=== PATIENT | female | born 1980 | race Caucasian/White ===

== ENCOUNTER 2017-04-08 02:22 | Emergency (ER) | payer OTHER ==
[2017-04-08] MEDS ORDERED: ONDANSETRON 4 MG/2 ML VIAL ONE (02:24)
--- NOTE | 2017-04-08 02:29 | EDPHY ---
H & P HPI/ROS: HPI CHIEF COMPLAINT: Acute alcohol intoxication HISTORY OF PRESENT ILLNESS: This patient 36-year-old female, denies any significant medical history except for mitral valve prolapse, pleasant however history review of systems somewhat limited due to patient's clinical state of acute alcohol intoxication. According to EMS she is visiting [facility] from [facility] with her boyfriend for a convention. She did have multiple alcoholic beverages tonight. She was found on [facility] unable to ambulate vomiting. Police and EMS make contact with her she was unable to ambulate so they brought her here to the emergency room. Upon arrival here in emergency room she is vomiting, she is highly intoxicated with alcohol smells of alcohol she is slurring her speech. She denies any focal complaints. No trauma reported. Past Medical History: Mitral valve prolapse Past Surgical History: Otherwise unknown Social History: Lives in [facility] Family History: Unknown ROS REVIEW OF SYSTEMS: Pre of systems limited due to patient's clinical state of intoxication Exam Constitutional intoxicated, smells of alcohol triage nursing summary reviewed, vital signs reviewed, sleepy Eyes horizontal beating nystagmus consistent with acute alcohol intoxication, normal conjunctivae and sclera. HENT normal inspection, atraumatic, moist mucus membranes, no epistaxis, neck supple/ no meningismus, no raccoon eyes. Respiratory clear to auscultation bilaterally, normal breath sounds, no respiratory distress, no wheezing. Cardiovascular rate normal, regular rhythm, no murmur, no edema, distal pulses normal. Gastrointestinal soft, non-tender, no rebound, no guarding, normal bowel sounds, no distension, no pulsatile mass. Genitourinary no CVA tenderness. Musculoskeletal no midline vertebral tenderness, full range of motion, no calf swelling, no tenderness of extremities, no meningismus, good pulses, neurovascularly intact. Skin pink, warm, & dry, no rash, skin atraumatic. Neurologic slurring his speech, consistent with alcohol intoxication, smells of alcohol, moves all extremities, ataxic gait unable to ambulate Heme/Lymph/Immune no lymphadenopathy. Differential Diagnosis: Includes but is not limited to in a particular order acute alcohol intoxication, alcohol intoxication causing acute nausea vomiting, dehydration. Medical Decision Making: Plan for this patient placed on electrical helper watch her closely, IV fluid bolus, IV Zofran for nausea. Monitor for sobriety. Check breath alcohol. Re-evaluation: [id number]: At this time patient refused breath alcohol. 0540: Patient is now much more sober she has, cooperative. Speaking coherently. Complete sentences. No ataxia. Normal gait. She is trying to find a ride back to her hotel. She is trying to contact her boyfriend at this time. Source: Patient, Police, EMS Constitutional: Initial Vital Signs Temperature (C) 36.4 C 04/08/17 02:30 Heart Rate 104 H 04/08/17 02:30 Respiratory Rate 18 04/08/17 02:30 Blood Pressure 125/81 H 04/08/17 02:30 O2 Sat (%) 97 04/08/17 02:30 O2 Delivery Mode Room Air Allergies/Adverse Reactions: levofloxacin [From Levaquin] Allergy (Verified 04/08/17 02:43) Hives Home Medications: Medication Instructions Recorded Ortho Tri-Cyclen 28 Tablet 04/08/17 Medical Decision Making - Data Points Medications Given: Discontinued Medications Ondansetron HCl (Zofran) 4 mg IVP EDNOW ONE Stop: 04/08/17 02:31 Last Admin: 04/08/17 02:30 Dose: 4 mg Departure - Departure Disposition: Home, Routine, Self-Care Clinical Impression: Alcoholic intoxication Qualifiers: Complication of substance-induced condition: uncomplicated Qualified Code(s): F10.920 - Alcohol use, unspecified with intoxication, uncomplicated Condition: Good Instructions: Alcohol Intoxication (ED) Referrals: Patient,NotPresent [Primary Care Provider] - As per Instructions
[2017-04-08] MEDS ORDERED: ONDANSETRON 4 MG/2 ML VIAL IVP ONE (02:30)
[2017-04-08 02:43] VITALS: TEMP 97.5
[2017-04-08 06:00] VITALS: BP 117/82; PULSE 104; RESP 18; O2SAT 97
== END 2017-04-08 05:56 | disposition home or self-care (01) ==
DX: F10.920 Alcohol use, unspecified with intoxication, uncomplicated (principal)
CPT/HCPCS: 96374; J2405